=== PATIENT | female | born 1980 | race American Indian/Alaskan Native ===

== ENCOUNTER 2019-08-26 11:48 | Emergency (ER) | payer OTHER ==
[2019-08-26 13:06] VITALS: BP 122/71
--- NOTE | 2019-08-26 14:23 | Emergency Department Report ---
Blank Doc - Documentation Documentation: 39-year-old female that presents with right lateral rib pain with some radiation to right arm. This initial assessment/diagnostic orders/clinical plan/treatment(s) is/are subject to change based on patient's health status, clinical progression and re- assessment by fellow clinical providers in the ED. Further treatment and workup at subsequent clinical providers discretion. Patient/guardians urged not to elope from the ED as their condition may be serious if not clinically assessed and managed. Initial orders include: 1- Patient sent to [facility] for further evaluation and treatment 2- xrays
--- NOTE | 2019-08-26 15:38 | XRay Report ---
RIGHT RIBS 3 VIEWS INDICATION / CLINICAL INFORMATION: PAIN RADIATING DOWN SIDE AND RT ARM. COMPARISON: None available. FINDINGS: RIBS: No acute, displaced fracture or other acute abnormality. LUNGS: No acute findings. No pneumothorax. Signer Name: Sony Camarillo MD Signed: 08/26/2019 3:34 PM Workstation Name: [id number]
== END 2019-08-26 18:33 | disposition left against medical advice (07) ==
LOC: ED 11:48
DX: R10.9 Unspecified abdominal pain (principal); Z53.21 Procedure and treatment not carried out due to patient leaving prior to being seen by health care provider